=== PATIENT | female | born 2000 | race Caucasian/White ===

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

== ENCOUNTER → 2019-01-14 12:19 | Outpatient (CLI) | payer MEDICAID, SELFPAY ==
[2019-01-14 09:29] VITALS: BMI 24.9
[2019-01-14 14:31] LABS: Amphetamine Urine VISTA NEGATIVE (<1000 ng/mL); Barbiturate Urine VISTA NEGATIVE (< 200 ng/mL); Benzodiazepine Urine VISTA NEGATIVE (< 200 ng/mL); Cocaine Urine VISTA NEGATIVE (< 300 ng/mL); Ecstacy Urine VISTA NEGATIVE (< 500 ng/mL); Methadone Urine VISTA NEGATIVE (< 300 ng/mL); PCP Urine VISTA NEGATIVE (< 25 ng/mL); THC Urine VISTA POSITIVE (< 50 ng/mL); Vista UDS pH Range 7
== END ==
PROVIDERS: Referring Provider Nurse Practitioner Women's Health; Visit Provider Nurse Practitioner Women's Health
DX: Z87.898 Personal history of other specified conditions (principal)
CPT/HCPCS: 80307

== ENCOUNTER → 2019-02-04 15:05 | Outpatient (CLI) | payer MEDICAID, SELFPAY ==
[2019-02-04 14:21] VITALS: BMI 24.9
[2019-02-04 15:34] LABS: Hematocrit 33.6 % (37-47); Hemoglobin 11.2 g/dL (12.0-15.0); Mean Corp Hgb Conc 33.3 g/dL (32-36); Mean Corpuscular Hgb 29.8 pg (27.0-32.0); Mean Corpuscular Volume 89.4 fL (81-99); Mean Platelet Vol. 9.4 fl (6.2-12.0); POSITIVE COUNT YES; POSITIVE MORPHOLOGY YES; Platelet Count 211 K/mm3 (150-450); RBC Distribution Width CV 12.5 % (11.6-14.6); RBC Distribution Width SD 40.9 fl (35.1-43.9); Red Blood Count 3.76 M/mm3 (4.2-5.4); White Blood Count 12.3 K/mm3 (4.4-11.0)
[2019-02-04 15:37] LABS: Differential Indicated MANUAL DIFF
[2019-02-04 16:13] LABS: Lymphocyte 19 % (19-41); Metamyelocyte 1 % (0-1); Monocyte 5 % (0-10); Neutrophil-Band 1 % (0-5); Neutrophil-Segmented 74 % (47-70); Total Cells Counted 100 (MANUAL DIFF)
[2019-02-04 16:14] LABS: Glucose Challenge Gest 1H 50g 153 mg/dL (70-140); Platelet Estimate ADEQUATE (ADEQ); Red Cell Morphology NORM C+C NORMAL (NORM C&C)
[2019-02-04 16:15] LABS: Absolute Lymphocyte Count 2.34 X10^3/uL (0.83-4.51); Absolute Neutrophil Count 9.2 X10^3/uL (2.0-7.7)
[2019-02-05 09:09] LABS: Hepatitis B Surface Antigen Non-Reactive (Nonreactive)
[2019-02-05 10:06] LABS: Pathologist Review Reviewed
== END ==
PROVIDERS: Visit Provider Obstetrics & Gynecology
DX: Z34.92 Encounter for supervision of normal pregnancy, unspecified, second trimester (principal); Z3A.27 27 weeks gestation of pregnancy
CPT/HCPCS: 36415; 82950; 85025; 87340

== ENCOUNTER → 2019-02-06 09:38 | Outpatient (CLI) | payer MEDICAID, SELFPAY ==
[2019-02-04 14:21] VITALS: BMI 24.9
== END ==
PROVIDERS: Referring Provider Obstetrics & Gynecology; Visit Provider Obstetrics & Gynecology
DX: Z34.90 Encounter for supervision of normal pregnancy, unspecified, unspecified trimester (principal)
CPT/HCPCS: 86850; 86900; 86901

== ENCOUNTER → 2019-02-24 10:03 | Outpatient (CLI) | payer MEDICAID, SELFPAY ==
[2019-02-04 14:21] VITALS: BMI 24.9
[2019-02-18 09:20] VITALS: BMI 24.9
[2019-02-24 10:46] LABS: Glucose GTT-Gestation. Fasting 98 mg/dL (<105)
[2019-02-24 11:46] LABS: Glucose GTT-Gestational 1 Hr 196 mg/dL (<190)
[2019-02-24 13:17] LABS: Glucose GTT-Gestational 2 Hr 141 mg/dL (<165)
[2019-02-24 14:20] LABS: Glucose GTT-Gestational 3 Hr 61 L (<145)
== END ==
PROVIDERS: Referring Provider Nurse Practitioner Women's Health; Visit Provider Nurse Practitioner Women's Health
DX: O99.810 Abnormal glucose complicating pregnancy (principal)
CPT/HCPCS: 36415; 82951; 82952

== ENCOUNTER → 2019-03-07 13:21 | Outpatient (CLI) | payer MEDICAID, SELFPAY ==
[2019-03-07 11:03] VITALS: BMI 24.9
[2019-03-07 14:14] LABS: Amphetamine Urine VISTA NEGATIVE (<1000 ng/mL); Barbiturate Urine VISTA NEGATIVE (< 200 ng/mL); Benzodiazepine Urine VISTA NEGATIVE (< 200 ng/mL); Cocaine Urine VISTA NEGATIVE (< 300 ng/mL); Ecstacy Urine VISTA NEGATIVE (< 500 ng/mL); Methadone Urine VISTA NEGATIVE (< 300 ng/mL); PCP Urine VISTA NEGATIVE (< 25 ng/mL); THC Urine VISTA POSITIVE (< 50 ng/mL); Vista UDS pH Range 6
== END ==
PROVIDERS: Referring Provider Obstetrics & Gynecology; Visit Provider Obstetrics & Gynecology
DX: Z87.898 Personal history of other specified conditions (principal)
CPT/HCPCS: 80307

== ENCOUNTER → 2019-04-04 | Outpatient (CLI) | payer MEDICAID, SELFPAY ==
[2019-04-04 13:15] VITALS: BMI 24.9
== END | disposition home or self-care (01) ==
LOC: LABSPEC 16:59
PROVIDERS: Referring Provider Obstetrics & Gynecology; Visit Provider Obstetrics & Gynecology
DX: Z34.90 Encounter for supervision of normal pregnancy, unspecified, unspecified trimester (principal)
CPT/HCPCS: 87081

== ENCOUNTER → 2019-04-08 14:53 | Outpatient (CLI) | payer MEDICAID, SELFPAY ==
[2019-04-04 13:15] VITALS: BMI 24.9
--- NOTE | 2019-04-08 14:54 | US_ITS ---
STUDY: OBSTETRICAL ULTRASOUND - BIOPHYSICAL PROFILE REASON FOR EXAM: Female, 18 years old WELL BEING LMP: 07/25/2018 PRIOR ULTRASOUND: None. TECHNIQUE: Transabdominal TECHNICAL QUALITY: Adequate. FINDINGS: There is a single intrauterine fetus. The fetus is in a cephalic presentation. There is demonstrated cardiac activity with a heart rate of 144 bpm. There is a normal amniotic fluid volume. The largest amniotic fluid pocket measures 6.6 cm. The amniotic fluid index (ANURAG) is 16.6 cm. The placenta is fundal in location. There are Grade 3 placental changes. Age by LMP: 36 weeks, 5 days. PEPITO by LMP: 05/01/2019. BIOPHYSICAL PROFILE: Breathing Movements (FBM): 2 Gross Body Movements (GBM): 2 Tone (FT): 2 Amniotic Fluid Volume (AFV): 2 TOTAL SCORE: 8 / 8 US/Biophysical Prof W/O Non Stres IMPRESSION: Normal biophysical profile of 09/26. Electronically Signed: Pedro Armijo MD at 8:06 EST Tel , Service support ,
--- NOTE | 2019-04-08 15:21 | US_ITS ---
STUDY: SECOND AND THIRD TRIMESTER OBSTETRICAL ULTRASOUND - LIMITED REASON FOR EXAM: Female, 18 years old GROWTH LMP: 07/25/2018 PRIOR ULTRASOUND: None. TECHNIQUE: Transabdominal TECHNICAL QUALITY: Adequate. FINDINGS: There is a single intrauterine fetus. The fetus is in a cephalic presentation. There is demonstrated cardiac activity with a heart rate of 158 bpm. There is a normal amniotic fluid volume. The largest amniotic fluid pocket measures 7.0 cm. The amniotic fluid index (ANURAG) is 16.3 cm. The placenta is fundal in location. There are Grade 3 placental changes. The cervix measures cm in length. BIOMETRY: BPD: 8.7 cm: 35 weeks, 1 days HC: 31.4 cm: 35 weeks, 2 days AC: 36.4 cm: 40 weeks, 3 days FL: 6.6 cm: 34 weeks, 0 days Age by LMP: 36 weeks, 5 days. PEPITO by LMP: 05/01/2019. age by current US: 36 weeks, 2 days. PEPITO by current US: 05/04/2019. Estimated weight: 3298 grams, +/- 482 grams, 81 percentile. Gender: US/OB Limited With Biometrics IMPRESSION: Living intrauterine of 36 weeks 2 days as described above. Electronically Signed: Pedro Armijo MD at 8:09 EST Tel , Service support ,
== END ==
PROVIDERS: Referring Provider Obstetrics & Gynecology; Visit Provider Obstetrics & Gynecology
DX: O99.810 Abnormal glucose complicating pregnancy (principal); Z3A.36 36 weeks gestation of pregnancy
CPT/HCPCS: 76816; 76819

== ENCOUNTER → 2019-04-10 | Outpatient (CLI) | payer MEDICAID, SELFPAY ==
[2019-04-10 11:06] VITALS: BMI 24.9
[2019-04-10 13:38] LABS: Amphetamine Urine VISTA NEGATIVE (<1000 ng/mL); Barbiturate Urine VISTA NEGATIVE (< 200 ng/mL); Benzodiazepine Urine VISTA NEGATIVE (< 200 ng/mL); Cocaine Urine VISTA NEGATIVE (< 300 ng/mL); Ecstacy Urine VISTA NEGATIVE (< 500 ng/mL); Methadone Urine VISTA NEGATIVE (< 300 ng/mL); PCP Urine VISTA NEGATIVE (< 25 ng/mL); THC Urine VISTA POSITIVE (< 50 ng/mL); Vista UDS pH Range 6
== END | disposition home or self-care (01) ==
LOC: LABSPEC 13:11
PROVIDERS: Referring Provider Obstetrics & Gynecology; Visit Provider Obstetrics & Gynecology
DX: Z87.898 Personal history of other specified conditions
CPT/HCPCS: 80307

== ENCOUNTER 2019-04-18 12:00 | Inpatient (IN) | payer MEDICAID, SELFPAY ==
[2019-04-17 10:53] VITALS: BMI 24.9
[2019-04-18] VITALS (30 sets, daily range): BP systolic 111–177; BP diastolic 61–97; PULSE 88–160; RESP 16–17; TEMP 36.9–37; O2SAT 99–100; BMI 35.9
[2019-04-18 11:59] LABS: ROM Internal Control Test YES-OK TO RESULT pt. (Internal QC); ROM Patient Test POSITIVE (Negative)
[2019-04-18] MEDS: Lactated Ringers 1,000 ML 50 ML IV (12:35)
[2019-04-18 12:51] LABS: Absolute Lymphocyte Count 1.86 X10^3/uL (0.83-4.51); Absolute Neutrophil Count 13.2 X10^3/uL (2.0-7.7); Basophil# 0.08 X10^3/uL; Basophil% 0.5 % (0-1); Eosinophil# 0.05 X10^3/uL; Eosinophils% 0.3 % (0-5); Hematocrit 35.7 % (37-47); Hemoglobin 11.8 g/dL (12.0-15.0); Lymphocyte # 1.86 X10^3/ul (4.0); Lymphocyte % 11.1 % (19-41); Mean Corp Hgb Conc 33.1 g/dL (32-36); Mean Corpuscular Hgb 27.3 pg (27.0-32.0); Mean Corpuscular Volume 82.6 fL (81-99); Mean Platelet Vol. 9.9 fl (6.2-12.0); Monocyte# 0.98 X10^3/uL; Monocyte% 5.9 % (0-10); NRBC Flagged by Analyzer 0 % (0-5); Platelet Count 302 K/mm3 (150-450); RBC Distribution Width CV 13.9 % (11.6-14.6); RBC Distribution Width SD 40.7 fl (35.1-43.9); Red Blood Count 4.32 M/mm3 (4.2-5.4); White Blood Count 16.7 K/mm3 (4.4-11.0)
[2019-04-18] MEDS: Lactated Ringers 500 ML 999 ML IV (13:07)
[2019-04-18 13:16] LABS: Amphetamine Urine VISTA NEGATIVE (<1000 ng/mL); Barbiturate Urine VISTA NEGATIVE (< 200 ng/mL); Benzodiazepine Urine VISTA NEGATIVE (< 200 ng/mL); Cocaine Urine VISTA NEGATIVE (< 300 ng/mL); Ecstacy Urine VISTA NEGATIVE (< 500 ng/mL); Methadone Urine VISTA NEGATIVE (< 300 ng/mL); PCP Urine VISTA NEGATIVE (< 25 ng/mL); THC Urine VISTA POSITIVE (< 50 ng/mL); Vista UDS pH Range 7
[2019-04-18] MEDS: fentaNYL-bupivacaine (epidural) 100 ML BAG EPIDURAL (13:43)
--- NOTE | 2019-04-18 13:47 | HP.PCM_ITS ---
- Problem List (1) SROM (spontaneous rupture of membranes) Status: Acute (2) Contraception management Status: Acute Qualifiers: Comment: NEXPLANON POST DELIVERY (3) Abnormal glucose affecting Status: Acute Comment: Normal 3hr GTT (4) Incarceration Status: Acute Comment: 01/14 [place] violation, positive for marijuana use. 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 Anatomy and growth US normal. (11) Supervision of normal Status: Acute Qualifiers: Comment: PRR PEPITO 05/01/19 girl Sherice boyfriend Mukesh ([place]) History Date of Admission: 04/18/19 History of this : This is a 18 year-old, at 38 weeks gestational age presents IAL with SROM clear fluid Surgical History: Surgical History (Last Reviewed 04/10/19 @ 11:06 by Genoveva Aldridge) History of skin graft Z94.5 arm Allergies No Known Allergies Allergy (Verified 04/18/19 12:50) Home Medications: Home Medications vitamin#30 30 mg iron-10 mg iron-folic acid 1 mg-omg3 capsule 1 cap PO DAILY cap 09/25/18 Smoking Status: Light Smoker (<10/day) Substance Use Type: Marijuana Number of Fetus(es): 1 NST - FHR Rate Baby A Baseline: 130 Variability:: Moderate Accelerations:: 15 x 15 Decelerations:: None NST Reactive:: Yes FHR Category:: Category I Uterine Activity:: q 3-4 History Past Pregnancies: Past Pregnancies Delivery Date Name GA/ Weeks Outcome Route Wt Infant Sex Labor Length Anesthesia Delivery Location Provider FOB Labs: Mom's Problem List Problem Status Onset Code SROM (spontaneous rupture of membranes) Acute Mom's Labs & Results 04/18/19 04/18/19 04/18/19 11:45 12:00 12:00 WBC 16.7 H RBC 4.32 Hgb 11.8 L Hct 35.7 L MCV 82.6 MCH 27.3 MCHC 33.1 RDW Std Deviation 40.7 RDW Coeff of Jay 13.9 Plt Count 302 MPV 9.9 Immature Gran % (Auto) 3.200 H Neut % (Auto) 79.0 H Lymph % (Auto) 11.1 L Luna % (Auto) 5.9 Eos % (Auto) 0.3 Baso % (Auto) 0.5 Absolute Neuts (auto) 13.2 H Absolute Lymphs (auto) 1.86 Nucleated RBC % 0 Vag Amniotic Fld Detect POSITIVE H Urine Opiates Screen Urine Methadone Screen Ur Barbiturates Screen Ur Phencyclidine Scrn Ur Amphetamines Screen U Methamphetamin-MDMA U Benzodiazepines Scrn Urine Cocaine Screen U Cannabinoids Screen Ur Drug Screen Comment Blood Type Pending Antibody Screen Pending 04/18/19 12:00 WBC RBC Hgb Hct MCV MCH MCHC RDW Std Deviation RDW Coeff of Jay Plt Count MPV Immature Gran % (Auto) Neut % (Auto) Lymph % (Auto) Luna % (Auto) Eos % (Auto) Baso % (Auto) Absolute Neuts (auto) Absolute Lymphs (auto) Nucleated RBC % Vag Amniotic Fld Detect Urine Opiates Screen NEGATIVE Urine Methadone Screen NEGATIVE Ur Barbiturates Screen NEGATIVE Ur Phencyclidine Scrn NEGATIVE Ur Amphetamines Screen NEGATIVE U Methamphetamin-MDMA NEGATIVE U Benzodiazepines Scrn NEGATIVE Urine Cocaine Screen NEGATIVE U Cannabinoids Screen POSITIVE H Ur Drug Screen Comment Blood Type Antibody Screen Course Did the patient receive Yes care? Labs Blood Type: O RH: NEGATIVE RPR/VDRL/Syphilis Nonreactive Rubella status Immune HbSAg Negative Date Done: 02/04/19 Chlamydia Negative Gonorrhea Negative HIV/AIDS Non-Reactive Group B Strep: Negative Current Obstetrical History Gestational Diabetes No Incompetent Cervix No Infertility No IUGR No Macrosomia No Hypertension/Pre-eclampsia No Placenta Previa/Abruption No PTL/PROM No Uterine anomaly No Oligohydramnios No Polyhydramnios No Multiple gestation No Past Medical History Asthma No Diabetes No Hypertension No Heart disease No Mitral valve prolapse No Neurologic/Seizure disorder/ No Migraines Kidney disease No Liver disease No Varicosities No Clotting disorders/Hx of DVT No Thyroid Dysfunction No Other medical diseases No Psychiatric disorders No Major trauma Yes: skin graft on right arm at 2yo from washing machine accident Abnormal PAP smear No Sleep apnea No Mammogram in the last 2 years No Social History Marital Status: SINGLE Alleged father Mukesh Hx Smoking Yes Smoking Status Light Smoker (<10/day) Substance Use Type Marijuana How long have you used marijuana-2 years substances (years)? What date/time did you last not sure-around 3-4months use any of the above? Have you had any previous no inpatient or outpatient treatment Expected Infant Delivery Method: Spontaneous Vaginal Review of Systems Constitutional: Denies: Fever, Malaise Eyes: Denies: Blurred vision, Vision Change HEENT: Denies: Head Aches, Visual Changes Cardiovascular: Denies: Chest Pain, Palpitations Respiratory: Denies: Cough, Shortness of Breath, Wheezing Gastrointestinal: Denies: Abdominal Pain, Diarrhea, Nausea, Vomiting Genitourinary: Denies: Dysuria, Hematuria Musculoskeletal: Denies: Joint Pain, Muscle pain Skin: Denies: Lesions, Rash Neurological: Denies: Blurred vision, Focal weakness, Headaches Psychiatric: Denies: Anxiety, Depression Endocrine: Denies: Heat/ Cold Intolerance Hematologic/ Lymphatic: Denies: Easy Bruising, Easy Bleeding Physical Exam General: Alert, Cooperative, No apparent distress HEENT: Atraumatic, Normocephalic. Negative for: Thyromegaly, Lymphadenopathy Cardiovascular: Regular rate Lungs: Normal air movement Abdomen: Soft, Non Tender, Gravid Neurological: Deep Tendon Reflexes 2+/4 and Symmetrical, Neuro grossly intact. Negative for: Clonus CHIEF STRATEGY OFFICER: Normal external genitalia. 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 Pain management: plans epidural. GBS negative. Management of any complications: none I have reviewed the [facility] and made any clinically relevant updates..
[2019-04-18] MEDS: Oxytocin 30 units/NS 500 ml 30 UNITS/500 ML IV.SOLN 334 UNITS IV (16:08)
--- NOTE | 2019-04-18 16:14 | PCM.OPRPT ---
Problem List (1) SROM (spontaneous rupture of membranes) Status: Acute (2) Contraception management Status: Acute Qualifiers: Comment: NEXPLANON POST DELIVERY (3) Abnormal glucose affecting Status: Acute Comment: Normal 3hr GTT (4) Incarceration Status: Acute Comment: 01/14 [place] violation, positive for marijuana use. 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 Anatomy and growth US normal. (11) Supervision of normal Status: Acute Qualifiers: Comment: PRR PEPITO 05/01/19 girl Sherice boyfrtheresa Mayorga ([place]) Vaginal Delivery Maternal Presentation: Active Labor ial Amniotic Membrane Rupture Type: Spontaneous at home Amniotic Fluid Description: Clear Final PEPITO: 05/01/19 Gestational age: 38 Weeks and 1 Days Date of Procedure: 04/18/19 Pre-Operative Diagnosis: ial Post-Operative Diagnosis: same Surgery/ Procedure Performed: Spontaneous Vaginal Delivery Type of Anesthesia: Epidural Description of Procedure: Patient began pushing and delivered the head in the LADONNA presentation. The head was delivered atraumatically. The anterior and posterior shoulders delivered without complication followed by the rest of the infant and the infant was placed on the maternal abdomen. Delayed cord clamping was employed for approximately 60 seconds. Cord was clamped and cut and gentle traction was applied to the cord and the placenta delivered spontaneously immediately following it was noted to be intact with three-vessel cord. The perineum and vagina were inspected and noted to have no laceration. EBL was 300 cc. Patient and infant tolerated delivery well. Presentation: LADONNA Placental Delivery Description: Spontaneous Placenta Disposition: [facility] Codes - Urinary/Genital Urinary/Genital CPT Codes: 04905 Vaginal Delivery+ Care([facility])
[2019-04-18] MEDS: Acetaminophen 500 MG Tablet 1000 MG PO (23:21)
--- NOTE | 2019-04-19 03:09 | DCINST_ITS ---
Discharge Diet: No Restrictions Discharge Activity: Return to Normal Activity, May not drive while taking narcotic pain medications., May Shower May resume sexual activity in: 4-6 weeks Call your doctor if your incision/area has: Continuous Slow Oozing, Sudden Increased Bleeding, Increased Pain/ Swelling, Increased Redness, Foul Smelling Discharge Additional Instructions: If you experience any of the following, contact your healthcare provider. * Bleeding that soaks a pad every hour for 2 hours * Fever 100.4 or higher * Unrelieved incision or abdominal pain * Swelling, redness, discharge or bleeding from your incision or episiotomy site * Your incision begins to separate * Problems urinating (including inability to urinate or burning while urinating). * Visual changes * Severe headache * Flu-like symptoms * Pain or redness in one of both of your breasts * Pain, warmth, tenderness or swelling in your legs, especially the calf area * Frequent nausea and vomiting * Symptoms of depression or anxiety If you experience any of the following, call 911 or go to the nearest Emergency Room. * Chest pain * Problems breathing * Seizure activity * Partial or complete paralysis of a body part, slurred speech, weakness or drooping of the face, or a sudden inability to walk or hold your balance Allergies/Adverse Reactions: Allergies No Known Allergies Allergy (Verified 04/18/19 12:50) Medications to take at Discharge vitamin#30 30 mg iron-10 mg iron-folic acid 1 mg-omg3 capsule 1 cap PO DAILY cap 09/25/18 Please Follow Up With: Cass Gillespie MD - [phone] When: Call to make an appointment with your doctor in 6 weeks. If you had elevated Blood pressure or 4th degree laceration you will need to be seen in 2 weeks. Primary Care Physician: Care Physician,No Primary [Primary Care Provider] - Test Results: Test results from this visit will be discussed in further detail at your follow- up appointment, if applicable.
--- NOTE | 2019-04-19 03:09 | PCM.DCVAG ---
Discharge Diet: No Restrictions Discharge Activity: Return to Normal Activity, May not drive while taking narcotic pain medications., May Shower May resume sexual activity in: 4-6 weeks Call your doctor if your incision/area has: Continuous Slow Oozing, Sudden Increased Bleeding, Increased Pain/ Swelling, Increased Redness, Foul Smelling Discharge Additional Instructions: If you experience any of the following, contact your healthcare provider. Bleeding that soaks a pad every hour for 2 hours Fever 100.4 or higher Unrelieved incision or abdominal pain Swelling, redness, discharge or bleeding from your incision or episiotomy site Your incision begins to separate Problems urinating (including inability to urinate or burning while urinating). Visual changes Severe headache Flu-like symptoms Pain or redness in one of both of your breasts Pain, warmth, tenderness or swelling in your legs, especially the calf area Frequent nausea and vomiting Symptoms of depression or anxiety If you experience any of the following, call 911 or go to the nearest Emergency Room. Chest pain Problems breathing Seizure activity Partial or complete paralysis of a body part, slurred speech, weakness or drooping of the face, or a sudden inability to walk or hold your balance Allergies/Adverse Reactions: Allergies No Known Allergies Allergy (Verified 04/18/19 12:50) Medications to take at Discharge vitamin#30 30 mg iron-10 mg iron-folic acid 1 mg-omg3 capsule 1 cap PO DAILY cap 09/25/18 Please Follow Up With: Cass Gillespie MD - [phone] When: Call to make an appointment with your doctor in 6 weeks. If you had elevated Blood pressure or 4th degree laceration you will need to be seen in 2 weeks. Primary Care Physician: Care Physician,No Primary [Primary Care Provider] - Test Results: Test results from this visit will be discussed in further detail at your follow-up appointment, if applicable.
[2019-04-19 04:15] VITALS: BP 135/69; PULSE 92; RESP 16; TEMP 37.1
[2019-04-19] MEDS: Acetaminophen 500 MG Tablet 1000 MG PO (08:56)
[2019-04-19 09:00] VITALS: BP 117/62; PULSE 74; RESP 16; TEMP 36.9
--- NOTE | 2019-04-19 10:35 | PN.OBGYN_ITS ---
Patient Problems: Active and Suspected Problems (Last Reviewed 04/17/19 @ 10:53 by Genoveva Aldridge) SROM (spontaneous rupture of membranes) (Acute) Subjective: doing well no complaints pain controlled no CP SOB N V ambulating well tolerating po lochia moderate, going well - Physical Exam Vitals/I&O's: Vital Signs Temp Pulse Resp BP 98.4 F 74 16 117/62 04/19/19 09:00 04/19/19 09:00 04/19/19 09:00 04/19/19 09:00 Oxygen Delivery Method Room Air Weight: 229 lb 4.492 oz Body Mass Index (BMI) 35.9 Intake and Output for Last 24 Hours 04/17/19 04/18/19 04/19/19 23:59 23:59 23:59 Intake Total 1526.67 / 1526.67 Output Total 500 / 500 Balance 1026.67 / 1026.67 General: Alert, Oriented x3 Laboratory Results 04/18/19 11:45: Vag Amniotic Fld Detect POSITIVE H 04/18/19 12:00: WBC 16.7 H, RBC 4.32, Hgb 11.8 L, Hct 35.7 L, MCV 82.6, MCH 27.3, MCHC 33.1, RDW Std Deviation 40.7, RDW Coeff of Jay 13.9, Plt Count 302, MPV 9.9, Immature Gran % (Auto) 3.200 H, Neut % (Auto) 79.0 H, Lymph % (Auto) 11.1 L, Prentiss % (Auto) 5.9, Eos % (Auto) 0.3, Baso % (Auto) 0.5, Absolute Neuts (auto) 13.2 H, Absolute Lymphs (auto) 1.86, Nucleated RBC % 0 04/18/19 12:00: Blood Type O NEGATIVE, Antibody Screen NEGATIVE 04/18/19 12:00: Urine Opiates Screen NEGATIVE, Urine Methadone Screen NEGATIVE, Ur Barbiturates Screen NEGATIVE, Ur Phencyclidine Scrn NEGATIVE, Ur Amphetamines Screen NEGATIVE, U Methamphetamin-MDMA NEGATIVE, U Benzodiazepines Scrn NEGATIVE, Urine Cocaine Screen NEGATIVE, U Cannabinoids Screen POSITIVE H, Ur Drug Screen Comment Current Medications Acetaminophen (Tylenol) 325 - 650 mg PO Q4H PRN PRN PRN Reason: Pain Score 1-3/10 Acetaminophen (Tylenol) 1,000 mg PO Q8H PRN PRN PRN Reason: Pain Score 1-3/10 Last Admin: 04/19/19 08:56 Dose: 1,000 mg Documented by: Al Hydroxide/Mg Hydroxide (Mylanta Ii) 15 - 30 ml PO Q4H PRN PRN PRN Reason: INDIGESTION Bisacodyl (Dulcolax) 10 mg RECTAL UD PRN PRN Reason: If no BM Citric Acid/Sodium Citrate (Bicitra) 30 ml PO X1 PRN PRN Reason: Section Dibucaine (Dibucaine) 1 applic TOPICAL TID PRN PRN; Protocol PRN Reason: Discomfort Ephedrine Sulfate () 10 mg IV Q10M PRN PRN Reason: hypotension Ephedrine Sulfate () 10 mg IM Q30M PRN PRN Reason: hypotension Fentanyl Citrate (Sublimaze (100mcg Ampule)) 25 - 50 mcg IV Q2H PRN PRN PRN Reason: Pain Score 4-10/10 Fentanyl/Bupivacaine/Sodium Chlor () 0 ml EPIDURAL UD BERTHA; Protocol Last Admin: 04/18/19 13:43 Dose: 100 ml Documented by: Hydrocortisone (Hytone) 1 applic TOPICAL TID PRN PRN; Protocol PRN Reason: Discomfort Lactated Ringer's () 500 mls @ 999 mls/hr IV .Q31M PRN PRN Reason: Epidural Last Infusion: 04/18/19 13:38 Dose: Infused Documented by: Lactated Ringer's () 500 mls @ 999 mls/hr IV .Q31M PRN PRN Reason: Corrective Measures Lactated Ringer's () 1,000 mls @ 50 mls/hr IV .Q20H BERTHA Last Infusion: 04/18/19 16:08 Dose: Infused Documented by: Naloxone HCl 4 mg/ Dextrose 504 mls @ 0 mls/hr IV .Q0M PRN; Protocol PRN Reason: To maintain Resp. rate >10 Methylergonovine Maleate (Methergine) 0.2 mg IM X1 PRN PRN Reason: Excess bleeding/uterine atony Nalbuphine HCl (Nubain) 5 mg IV Q3H PRN PRN PRN Reason: ITCHING Naloxone HCl (Narcan) 0.02 mg IV Q1M PRN PRN Reason: RR< 10 AND PT UNRESPONSIVE Ondansetron HCl (Zofran) 4 mg IV Q4H PRN PRN PRN Reason: NAUSEA Ondansetron HCl (Zofran) 4 mg IV Q4H PRN PRN PRN Reason: Nausea Prochlorperazine Edisylate (Compazine Iv) 10 mg IV Q6H PRN PRN PRN Reason: NAUSEA Senna/Docusate Sodium (Senokot-S, Sommer-Colace) 1 - 2 tablet PO DAILY PRN PRN PRN Reason: Constipation Simethicone (Mylicon) 80 mg PO PCHS PRN PRN Reason: Indigestion/Stomach pain Sodium Chloride () 10 - 40 ml IV X1 PRN PRN Reason: SALINE FLUSH Sodium Chloride () 5 - 15 ml IV UD PRN PRN Reason: SALINE FLUSH Medical Necessity - Tobacco Use Smoking Status: Light Smoker (<10/day) Assessment/Plan All Active Problems (Last Reviewed 04/17/19 @ 10:53 by Genoveva Aldridge) SROM (spontaneous rupture of membranes) (Acute) Contraception management (Acute) Abnormal glucose affecting (Acute) Incarceration (Acute) 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 routine post delivery care 2. breast feeding- support given 3. rh negative 4. rubella immune
[2019-04-19 11:44] VITALS: BP 128/70; PULSE 72; RESP 16; TEMP 36.3
[2019-04-19] MEDS: Senna/Docusate Sodium 1 Tablet PO (15:56)
[2019-04-19 16:00] VITALS: BP 135/82; RESP 16; TEMP 36.7
--- NOTE | 2019-04-19 16:00 | CASEMGMT ---
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 SUKHJINDER NEGRON LUIS FELIPE REPORTS WORKS FOR [employer]. Infant Supplies: IVANA REPORTS HAS ALL NEEDS MET FOR BABY INCLUDING DIAPERS, WIPES, CRIB, CAR SEAT, CLOTHES ETC. Childcare/Caregiver(s): IVANA REPORTS WILL BE MAIN CAREGIVER FOR BABY GIRL, NIKITA. IVANA REPORTS HAS GOOD SUPPORT FROM PARENTS, FOB, AND FOB?S PARENTS. Transportation: MOB VOICES NO ISSUES WITH TRANSPORATION Programs/Agencies Involved: [place], [place]- IVANA REPORTS WILL BE CALLING TO MAKE APPOINTMENT Children Services/Legal Issues: IVANA TSE IS CURRENTLY ON PROBATION D/T MARIJUANA USE. Behavioral Health Issues: Mental Health History: MOB REPORTS HISTORY OF BIPOLAR DISORDER. MOB REPORTS DOES NOT TAKE MEDICATION AND IS NOT CURRNETLY IN COUNSELING. MOB DENIES NEED FOR COUNSELING SERVICES AT THIS TIME. Substance Use History: MOB REPORTS USE OF MARIJUANA AND TOBACCO. MOB ADMITS TO DAILY USE OF MARIJUANA. FOB ADMITS TO OCCASIONAL USE OF ALCOHOL. Drug Screens: MOB WITH POSITIVE DRUG SCREEN FOR THC. BABY?S URINE DRUG SCREEN POSITIVE. MECONIUM WAS COLLECTED FOR TESTING. Support Systems: MOB REPORTS GOOD SUPPORT FROM FOB AND PARENTS. Depression/Shaken Baby/Safe Sleeping ASSESSMENT: MET WITH MOB AND FOB IN ROOM. INTRODUCED ROLE AND REASON FOR REFERRAL. MOB WISHED FOR FOB TO BE PRESENT DURING ASSESSMENT. IVANA REPORTS LIVES HOME WITH HER PARENTS AND FOB. MOB AND FOB REPORT HAVE BEEN TOGETHER FOR 2 YEARS. FOB HAS A 1.5 YEAR OLD DAUGHTER. MOB AND FOB REPORT HAVE ALL NEEDS MET FOR BABY. MOB IS BREAST FEEDING AND REPORTS BABY GIRL IS DOING WELL WITH NURSING. DISCUSSED USE OF MARIJUANA AND ENCOURAGED MOB NOT TO USE WHILE BREAST FEEDING. MOB AND FOB AWARE OF CHILDREN SERVICES REFERRAL DUE TO POSITIVE DRUG SCREENS. BOTH VERBALIZED UNDERSTANDING. MOB REPORTS HISTORY OF BIPOLAR DISORDER AND STATES IS NOT PRESCRIBED MEDICATION. DISCUSSED AREA MENTAL HEALTH AGENCIES. MOB DENIES NEED FOR REFERRAL AT THIS TIME. EDUCATION PROVIDED ON HELP ME GROW. MOB AND FOB OPEN TO REFERRAL. REFERRAL SUBMITTED VIA ONLINE SECURE WEBSITE. Safe Plan of Care for infant related to substance use: MOB OPENLY ADMITS TO MARIJUANA USE. DISCUSSED USE AND INFORMED MOB AND FOB REPORT WILL BE MADE TO CHILDREN SERVICES. BOTH VERBALIZED UNDERSTANDING. PLAN: HOME WITH RESOURCES PROVIDED AND REFERRAL TO HELP ME GROW. REPORT TO BE MADE TO CHILDREN SERVICES REGARDING POSITIVE DRUG SCREEN FOR THC FOR MOB AND BABY GIRL, NIKITA. No other services requested or indicated. -Lupe Verma, IT INVESTMENT/PORTFOLIO MANAGER, EDUCATION AND TRAINING COORDINATOR
--- NOTE | 2019-04-19 17:20 | CASEMGMT ---
SOCIAL WORK REPORT MADE TO [facility] CHILDREN SERVICES ASSEMBLER AND TESTER ELECTRONICSCARD SERVICES SPECIALISTKISHAN REGARDING POSITIVE DRUG SCREENS FOR THC FOR MOB AND BABY GIRL, NIKITA. INFORMED MECONIUM HAS BEEN SENT. UPDATED ON THIS WORKER'S ASSESSMENT AND MOB'S REPORT TO DAILY USE OF MARIJUANA. PER KISHAN, REPORT TO BE SCREENED IN. CHILDREN SERVICES REQUESTING TO BE CALLED UPON DISCHARGE. NURSING STAFF UPDATED. IF DISCHARGED TOMORROW, 04/20/2019- ON-CALL CHILDREN SERVICES WORKERKISHAN TO BE REACHED AT [phone]. D. MS ZAKIYAW, SPORTS JOURNALIST.
[2019-04-19 20:20] VITALS: BP 121/68; PULSE 90; RESP 16; TEMP 36.7
[2019-04-20] MEDS: Acetaminophen 500 MG Tablet 1000 MG PO (00:47)
[2019-04-20 02:24] VITALS: BP 121/64; PULSE 90; RESP 14; TEMP 36.6
[2019-04-20 08:05] VITALS: BP 119/74; RESP 16; TEMP 36.4
[2019-04-20] MEDS: Etonogestrel 68 MG IMPLANT SQ (08:36)
--- NOTE | 2019-04-20 08:37 | PCM.OPRPT ---
Problem List (1) SROM (spontaneous rupture of membranes) Status: Acute (2) Contraception management Status: Acute Qualifiers: Comment: NEXPLANON POST DELIVERY (3) Abnormal glucose affecting Status: Acute Comment: Normal 3hr GTT (4) Incarceration Status: Acute Comment: 01/14 [place] violation, positive for marijuana use. 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 Anatomy and growth US normal. (11) Supervision of normal Status: Acute Qualifiers: Comment: PRR PEPITO 05/01/19 girl Sherice boyfrienjasmina Mayorga (mcintosh) Report of Operation Date of Procedure: 04/20/19 Pre-Operative Diagnosis: control Post-Operative Diagnosis: same Surgery/Procedure Performed:: nexplanon insertion Estimated Blood Loss (mL): minimal Description of Procedure: Left arm prepped with chlorhexidine and injected with lidocaine. Incision made and Nexplanon device inserted without complication confirmed to be in the subcutaneous space. Steri-Strip applied and bandage wrap applied. Precautions reviewed with patient. Patient tolerated the procedure well without complication Grafts/Implants Used: nexplanon - Complications none Multi Select Codes - Urinary/Genital Urinary/Genital CPT Codes: Other Procedure See Report - nexplanon insertion
--- NOTE | 2019-04-20 08:39 | PCM.PN.OB ---
Patient Problems: Active and Suspected Problems (Last Reviewed 04/17/19 @ 10:53 by Genoveva Aldridge) SROM (spontaneous rupture of membranes) (Acute) Subjective: doing well no complaints pain controlled no CP SOB N V ambulating well tolerating po lochia moderate, going well - Physical Exam Vitals/I&O's: Vital Signs Temp Pulse Resp BP 97.5 F L 90 16 119/74 04/20/19 08:05 04/20/19 02:24 04/20/19 08:05 04/20/19 08:05 Oxygen Delivery Method Room Air Weight: 229 lb 4.492 oz Body Mass Index (BMI) 35.9 Intake and Output for Last 24 Hours 04/18/19 04/19/19 04/20/19 23:59 23:59 23:59 Intake Total 1526.67 / 1526.67 Output Total 500 / 500 Balance 1026.67 / 1026.67 General: Alert, Oriented x3 Current Medications Acetaminophen (Tylenol) 325 - 650 mg PO Q4H PRN PRN PRN Reason: Pain Score 1-3/10 Acetaminophen (Tylenol) 1,000 mg PO Q8H PRN PRN PRN Reason: Pain Score 1-3/10 Last Admin: 04/20/19 00:47 Dose: 1,000 mg Documented by: Al Hydroxide/Mg Hydroxide (Mylanta Ii) 15 - 30 ml PO Q4H PRN PRN PRN Reason: INDIGESTION Bisacodyl (Dulcolax) 10 mg RECTAL UD PRN PRN Reason: If no BM Citric Acid/Sodium Citrate (Bicitra) 30 ml PO X1 PRN PRN Reason: Section Dibucaine (Dibucaine) 1 applic TOPICAL TID PRN PRN; Protocol PRN Reason: Discomfort Ephedrine Sulfate () 10 mg IV Q10M PRN PRN Reason: hypotension Ephedrine Sulfate () 10 mg IM Q30M PRN PRN Reason: hypotension Fentanyl Citrate (Sublimaze (100mcg Ampule)) 25 - 50 mcg IV Q2H PRN PRN PRN Reason: Pain Score 4-10/10 Fentanyl/Bupivacaine/Sodium Chlor () 0 ml EPIDURAL UD BERTHA; Protocol Last Admin: 04/19/19 19:40 Dose: Not Given Documented by: Hydrocortisone (Hytone) 1 applic TOPICAL TID PRN PRN; Protocol PRN Reason: Discomfort Lactated Ringer's () 500 mls @ 999 mls/hr IV .Q31M PRN PRN Reason: Epidural Last Infusion: 04/18/19 13:38 Dose: Infused Documented by: Lactated Ringer's () 500 mls @ 999 mls/hr IV .Q31M PRN PRN Reason: Corrective Measures Naloxone HCl 4 mg/ Dextrose 504 mls @ 0 mls/hr IV .Q0M PRN; Protocol PRN Reason: To maintain Resp. rate >10 Methylergonovine Maleate (Methergine) 0.2 mg IM X1 PRN PRN Reason: Excess bleeding/uterine atony Nalbuphine HCl (Nubain) 5 mg IV Q3H PRN PRN PRN Reason: ITCHING Naloxone HCl (Narcan) 0.02 mg IV Q1M PRN PRN Reason: RR< 10 AND PT UNRESPONSIVE Ondansetron HCl (Zofran) 4 mg IV Q4H PRN PRN PRN Reason: NAUSEA Ondansetron HCl (Zofran) 4 mg IV Q4H PRN PRN PRN Reason: Nausea Prochlorperazine Edisylate (Compazine Iv) 10 mg IV Q6H PRN PRN PRN Reason: NAUSEA Senna/Docusate Sodium (Senokot-S, Sommer-Colace) 1 - 2 tablet PO DAILY PRN PRN PRN Reason: Constipation Last Admin: 04/19/19 15:56 Dose: 1 tablet Documented by: Simethicone (Mylicon) 80 mg PO PCHS PRN PRN Reason: Indigestion/Stomach pain Sodium Chloride () 10 - 40 ml IV X1 PRN PRN Reason: SALINE FLUSH Sodium Chloride () 5 - 15 ml IV UD PRN PRN Reason: SALINE FLUSH Medical Necessity - Tobacco Use Smoking Status: Light Smoker (<10/day) Assessment/Plan All Active Problems (Last Reviewed 04/17/19 @ 10:53 by Genoveva Aldridge) SROM (spontaneous rupture of membranes) (Acute) Contraception management (Acute) Abnormal glucose affecting (Acute) Incarceration (Acute) 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 routine post delivery care 2. breast feeding- support given 3. rh negative 4. rubella immune nexplanon inserted
--- NOTE | 2019-04-20 10:52 | NURSING ---
Mireya from CPS in [facility] notified of patient's pending discharge. Patient is appropriate and involved in 's care. Patient has been instructed that it is not safe to breastfeed while smoking marijuana. Patient states she understands and it is her intention to quit smoking marijuana. I instructed her to formula feed the baby if she does not quit smoking marijuana. CPS aware of PHQ-9 score of 9. No other concerns from my standpoint.
== END 2019-04-20 10:55 | disposition home or self-care (01) | DRG 560 ==
LOC: OBT 12:10 → WP 12:10
PROVIDERS: Admitting Provider Obstetrics & Gynecology; Referring Provider Obstetrics & Gynecology; Visit Provider Obstetrics & Gynecology
DX: O36.63X0 Maternal care for excessive fetal growth, third trimester, not applicable or unspecified (principal); Z30.017 Encounter for initial prescription of implantable subdermal contraceptive; Z67.91 Unspecified blood type, Rh negative; O99.334 Smoking (tobacco) complicating childbirth; F17.200 Nicotine dependence, unspecified, uncomplicated; Z3A.38 38 weeks gestation of pregnancy; Z37.0 Single live birth
CPT/HCPCS: 59025; 59050; 80307; 84112; 85025; 86850; 86900; 86901; 99218; J7120; G0378

== ENCOUNTER 2021-05-11 16:48 | Inpatient (IN) | payer MEDICAID, SELFPAY ==
[2021-05-11 16:49] VITALS: BP 120/80; PULSE 133; RESP 18; TEMP 36.8; O2SAT 99; BMI 32.4
--- NOTE | 2021-05-11 17:03 | EDS_ITS ---
HPI History of Present Illness Chief Complaint: Substance Abuse Detail of Chief Complaint: Alcohol level dependency and methamphetamine use Informant: patient Onset/Context/Timing Onset: - (1 year use of alcohol former drug addict recently used methamph etamine) Context: Sudden Onset Timing: Continuous Quality: 1/5 of whiskey a day Location: Not applicable Current Severity: 11/28 Maximum Severity: 11/28 Worsened by: Psychosocial issues Relieved by: Nothing Associated Symptoms Associated Symptoms: Positive for tremor, palpatations and no; Negative for vomiting*, diarrhea*, fever*, rash*, seizure, change in mental status, sex for drugs*, suicidal ideation, homicidal ideation and *HIV Risk Factors:Consider testing if last test > 6 months Prehospital Treatment: Naloxone, Glucose, Oxygen, BVM and CPR Narrative Narrative: Patient is a 20-year-old female who started drinking heavily May 182020. She consumes 1/5 of whiskey a day. She also uses methamphetamine. She has been in drug rehab programs in the past. She not been in a program program year. She states she used the methamphetamine because of problems with her her and her ex. She lost her job 1 week ago. Her children were taken away from her because of her alcohol consumption. Patient's last drink was at 1300. She denies black or maroon stool. She has bleeding of her gums. She denies bruising easily. Prior similar symptoms: Yes Recent Illness/Hospitalization: No PFSH PFSH Home Medications aripiprazole 5 mg tablet 5 mg PO tab 01/31/21 [History Last Taken Unknown] cariprazine 4.5 mg capsule 4.5 mg PO cap 01/31/21 [History Last Taken Unknown] escitalopram oxalate 20 mg tablet 20 mg PO tab 01/31/21 [History Last Taken Unknown] escitalopram oxalate 5 mg tablet 5 mg PO tab 01/31/21 [History Last Taken Unknown] lamotrigine 150 mg tablet 150 mg PO tab 01/31/21 [History Last Taken Unknown] topiramate 100 mg tablet 100 mg PO tab 01/31/21 [History Last Taken Unknown] Allergy/AdvReac Type Severity Reaction Status Date / Time acetaminophen [From Tylenol] Allergy Itching Verified 05/11/21 16:52 Family History Father Heart disease Surgical History History of skin graft Social History (Updated 05/11/21 @ 17:[address] Johnny Anderson MD) household members: none Smoking Status: Current every day smoker tobacco type: cigarettes alcohol intake: current substance use type: does not use caffeine: Yes what type of physical activity do you participate in: none seatbelt use: always do you feel safe at home: Yes additional social history: Chelsea pelayo are unemployed ROS ROS ED Constitutional Constitutional ED: Denies chills, fever(s), subjective, sweats or weight loss Eyes Eyes: Denies blurry vision, change in vision or diplopia ENT ENT ED: Denies ear pain, rhinorrhea or sore throat Cardiovascular Cardiovascular: Reports palpitations and racing heartbeat; Denies chest pain Respiratory/Chest Respiratory/Chest: Denies cough, dyspnea or dyspnea on exertion Gastrointestinal Gastrointestinal: Reports nausea; Denies abdominal pain, diarrhea, melena or vomiting Genitourinary Genitourinary ED: Denies dysuria, LMP (females 10-50) or urinary frequency Musculoskeletal Musculoskeletal: Denies arthralgias, myalgias or neck pain Integumentary Denies Abrasions or rash Neurologic Neurologic: Denies paresthesias or weakness Psychiatric Psychiatric: Reports anxiety; Denies suicidal thoughts Hematologic/Lymphatic Hematologic/Lymphatic: Denies anemia, easy bleeding or easy bruising EXAM Physical Exam Const Vital Signs: 05/11/21 16:49 Temperature 98.3 F Temperature Source Temporal Pulse Rate 133 H Respiratory Rate 18 Blood Pressure 120/80 Blood Pressure Mean 93 Pulse Ox 99 Oxygen Delivery Method Room Air Positive well nourished and well developed General Appearance ED: well developed and other Tearful, inappropriate laughing, and embarrassment ; Negative for NAD or pallor HEENT Reports TM's clear and moist mucous membranes atraumatic; Negative for tenderness Tympanic Membrane ED: Yes TM's clear Eyes PERRL and EOMs intact bilaterally General Eye ED: Negative for pale conjunctiva or scleral icterus Neck no lymphadenopathy, supple and no JVD Lymph Lymphatic: no lymphadenopathy noted Resp normal respiratory effort and clear to auscultation bilaterally Cardio regular rhythm, S1 normal heart sound, S2 normal heart sound and no murmurs GI soft to palpation, non-tender, non-distended and no masses Back/Spine no CVA tenderness Cervical Spine: Negative for cervical spine tenderness Thoracic Spine / Upper Back: Negative for thoracic spinal tenderness Lumbar Spine / Lower Back: Negative for lumbar spinal tenderness Extremity General Extremety ED: Negative for tenderness Neuro oriented x3, CN's II-XII intact bilaterally and no sensory deficits noted Taiwo Coma Scale: document GCS findings Spontaneous Obeys Commands Oriented 15 Sensorium / Orientation: alert Motor Exam: strength 5/5 throughout Psych Negative for mental status grossly normal Attitude: No belligerent, No agitated, No aggressive and No hostile Mood & Affect: anxious and tearful Skin General Skin Exam: Negative for jaundice or pallor Lesions: no lesions Rashes: no rashes MDM MDM MDM Narrative Medical decision making narrative: Work-up was initiated for alcohol addiction. Since patient is tachycardic she received phenobarb. Case was discussed with hospitalist she will be admitted to the hospital labs will be checked by the hospitalist. Discharge Plan Triage Chief Complaint: Substance Abuse ED Provider: Johnny Anderson Dx/Rx/DC Orders Clinical Impression: Alcohol dependence, Sinus tachycardia, Bipolar affective disorder, Methamphetamine use Prescriptions: No Action lamotrigine 150 mg tablet 150 mg PO RF: 0 escitalopram oxalate 5 mg tablet 5 mg PO RF: 0 aripiprazole 5 mg tablet 5 mg PO RF: 0 escitalopram oxalate 20 mg tablet 20 mg PO RF: 0 topiramate 100 mg tablet 100 mg PO RF: 0 Vraylar 4.5 mg capsule 4.5 mg PO RF: 0 Primary Care Provider: Care Physician,No Primary Referrals: Care Physician,No Primary [Primary Care Provider] - Disposition Disposition: Acute Care Hospital [facility]
--- NOTE | 2021-05-11 17:12 | NURSING ---
HOSPITALIST FOR DR BLAKE
--- NOTE | 2021-05-11 17:21 | HP.PCM_ITS ---
Documented by User: APARNA Hunter 05/11/21 17:31 HPI - General General Date of Admission: 05/11/21 Date of Service: 05/11/21 Chief Complaint: Desire for detox from alcohol HPI Narrative MAGDY PENA, is a 20 F who presents with a desire to detox from alcohol. Patient states that she drinks approximately 1/5 of whiskey per day. Patient states she also drinks beer and other malt beverages occasionally. Patient states that she had been in an inpatient detox center in [facility] for methamphetamine abuse approximately 1 year ago and had been clean up until Sunday when she relapsed. Patient denies any other drug use. Patient does have a history of bipolar affective disorder however patient has no other medical history. [facility] Medical History (Updated 05/11/21 @ 17:31 by APARNA Hunter) Bipolar affective disorder Home Medications aripiprazole 5 mg tablet 5 mg PO DAILY tab 01/31/21 [History Last Taken 05/11/21] cariprazine 4.5 mg capsule 4.5 mg PO DAILY cap 01/31/21 [History Last Taken 05/11/21] escitalopram oxalate 5 mg tablet 25 mg PO DAILY tab 01/31/21 [History Last Taken 05/11/21] topiramate 100 mg tablet 100 mg PO DAILY tab 01/31/21 [History Last Taken 04/20 05/10] amitriptyline 50 mg PO QHS 05/11/21 [History Last Taken 05/10/21] clonidine HCl 0.1 mg PO QHS 05/11/21 [History Last Taken 05/10/21] lamotrigine 200 mg PO BID 05/11/21 [History Last Taken 05/11/21] Allergy/AdvReac Type Severity Reaction Status Date / Time acetaminophen [From Tylenol] Allergy Itching Verified 05/11/21 16:52 Family History Father Heart disease Surgical History History of skin graft Social History household members: none Smoking Status: Current every day smoker tobacco type: cigarettes alcohol intake: current substance use type: does not use caffeine: Yes what type of physical activity do you participate in: none seatbelt use: always do you feel safe at home: Yes additional social history: Mukesh- both are unemployed ROS Constitutional Constitutional: Denies anorexia, chills, fatigue, fever(s), malaise or weakness Cardiovascular Cardiovascular: Denies chest pain, edema, palpitations or syncope Respiratory/Chest Respiratory/Chest: Denies cough, shortness of breath at rest, shortness of breath with exertion or wheezing Gastrointestinal Gastrointestinal: Denies abdominal pain, constipation, diarrhea, nausea or vomiting Genitourinary Genitourinary: Denies dysuria Musculoskeletal Musculoskeletal: Denies back pain, extremity pain, joint pain, joint stiffness or joint swelling Integumentary Integumentary: Denies dry skin Neurologic Neurologic: Denies abnormal gait, abnormal speech, confusion, dizziness or focal weakness Psychiatric Psychiatric: Denies anxiety Endocrine Endocrinology: Denies change in body appearance Hematologic/Lymphatic Hematologic/Lymphatic: Denies anemia Vital Signs Vital Signs Vital Signs: 05/11/21 16:49 Temperature 98.3 F Temperature Source Temporal Pulse Rate 133 H Respiratory Rate 18 Blood Pressure 120/80 Blood Pressure Mean 93 Pulse Ox 99 Oxygen Delivery Method Room Air Weight Weight: 207 lb 3.752 oz Body Mass Index (BMI) 32.4 Physical Exam Const alert, oriented x3 and no apparent distress General Appearance: cooperative HEENT normocephalic and head/scalp atraumatic Eyes conjunctivae normal and no scleral icterus Neck no lymphadenopathy and supple General: trachea midline Resp normal respiratory effort, normal air movement and clear to auscultation bilaterally Cardio regular rate, regular rhythm, S1 normal heart sound, S2 normal heart sound and peripheral pulses 2+ throughout GI normal to inspection, nondistended, normoactive bowel sounds, soft to palpation and non-tender Extremity normal capillary refill and no clubbing, cyanosis or edema General Extremity: no tenderness to palpation of joints or extremities Skin General Skin Exam: no breakdown and turgor normal Lesions: no lesions Rashes: no rashes Neuro no focal motor deficits and no sensory deficits noted Speech: speech normal Motor Exam: Negative for general weakness Psych thought process normal and cooperative Activity / Motor Behavior: restless Mood & Affect: flat affect Results Lab / Micro Data Result Diagrams: 05/11/21 17:10 05/11/21 17:10 Assessment & Plan Assessment/Plan (1) Bipolar affective disorder: QUALIFIERS: Active/Remission status: remission status unspecified Qualified Code(s): F31.9 - Bipolar disorder, unspecified (2) Alcohol dependence: (3) Methamphetamine use: PLAN: 1. Alcohol dependence with desire for detoxification -Admit to [facility] -Phenobarbital taper ordered -CIWA per protocol -Supportive medications ordered per protocol -Regular diet ordered -Urine drug screen pending -Case management consulted for coordination with 180 upon discharge 2. Bipolar affective disorder -We will continue patient's home medications including Abilify, Vraylar, Lexapro, Lamictal, Topamax 3. Methamphetamine use -Patient had been sober times almost 1 year however patient states that she did relapse on Sunday 4. Tobacco abuse -Inpatient cessation education ordered -Nicotine patch ordered DVT prophylaxis-not indicated, encourage ambulation This patient was seen by APARNA Hunter under the supervision of Dr. Linton 25 minutes spent in clinical coordination of patient's plan of care. Documented by User: Dr. Farhan Linton DO 05/11/21 19:24 HPI - General General Date of Admission: 05/11/21 [facility] Medical History (Updated 05/11/21 @ 17:31 by Lupe Alamo NP-C) Bipolar affective disorder Home Medications aripiprazole 5 mg tablet 5 mg PO DAILY tab 01/31/21 [History Last Taken 05/11/21] cariprazine 4.5 mg capsule 4.5 mg PO DAILY cap 01/31/21 [History Last Taken 05/11/21] escitalopram oxalate 5 mg tablet 25 mg PO DAILY tab 01/31/21 [History Last Taken 05/11/21] topiramate 100 mg tablet 100 mg PO DAILY tab 01/31/21 [History Last Taken 05/11/21] amitriptyline 50 mg PO QHS 05/11/21 [History Last Taken 05/10/21] clonidine HCl 0.1 mg PO QHS 05/11/21 [History Last Taken 05/10/21] lamotrigine 200 mg PO BID 05/11/21 [History Last Taken 05/11/21] Allergy/AdvReac Type Severity Reaction Status Date / Time acetaminophen [From Tylenol] Allergy Itching Verified 05/11/21 16:52 Family History Father Heart disease Surgical History History of skin graft Social History household members: none Smoking Status: Current every day smoker tobacco type: cigarettes alcohol intake: current substance use type: does not use caffeine: Yes what type of physical activity do you participate in: none seatbelt use: always do you feel safe at home: Yes additional social history: Mukesh- both are unemployed Results Lab / Micro Data Result Diagrams: 05/11/21 17:10 05/11/21 17:10 Charges/Coding Addendum Addendum: Patient was seen and examined today independently of Haleigh Alamo, she came to the ER today at [facility] requesting services for detox from alcohol, she told the emergency room physician that she drinks 1/5 of whiskey a day, she also told him that the last time she drank was approximately 1:00 this afternoon. Patient denied ever going through detox for alcohol before and states she is only drank for a year. Patient did admit to having a problem with methamphetamines in the past and going to a rehab facility for methamphetamines. The emergency room physician today that saw the patient told me that someone called him earlier today and requested information for methamphetamine detox services at the hospital and was told by him that we do not detox from methamphetamines. On examination she appeared in good health and spirits, she does not appear to be in any distress. Vital signs as documented. Skin warm and dry and without overt rashes. Neck without JVD, thyroid appears normal, trachea is midline, neck is supple. Lungs clear, normal air movement was noted. Heart exam notable for regular rhythm, normal sounds and absence of murmurs, rubs or gallops. Abdomen unremarkable and without evidence of organomegaly, masses, or abdominal aortic enlargement, bowel sounds are present in all 4 quadrants, no abdominal tenderness was noted. Extremities nonedematous, no cyanosis was noted, no clubbing was noted. Neuro: Cranial nerves II through XII are grossly intact, no focal motor deficits were noted, sensation to light touch and pinprick is intact, motor exam 5/5 throughout. Psych: Patient is alert and oriented x3, she does not appear anxious or depressed, she does not appear agitated. Patient does not appear nervous, anxious, or tremorous. Patient appears very animated and is not sad or depressed. She told this examiner that the last time she drank was this morning and that she drinks gin and beer. Patient's tox screen was positive for amphetamines, MDMA, and cannabinoids. Her ethyl alcohol level was 4. I strongly suspect the patient does not have an alcohol problem, I talked to nursing on MedSurg 3 and told them not to treat her unless they were sure that she was undergoing alcohol withdrawal. I have placed orders in for alcohol detox, she will be seeing addiction family welfare social work professor tomorrow. Impression: #1 requesting services for alcohol detox-without visible evidence of alcohol withdrawal at this time, again I strongly suspect the patient does not have an alcohol problem based on the way she presents to this examiner. I also think she had called in earlier today in the ER and had that conversation with the emergency room physician concerning methamphetamine detox services. #2 methamphetamine abuse-there is no treatment I can offer this patient for methamphetamine abuse, addiction family welfare social work professor will talk with the patient tomorrow. #3 bipolar disorder-patient does not remember what medications she takes for bipolar disorder, right [facility] was contacted and will provide a list of her outpatient medications. I have reviewed Haleigh Alamo's history and physical including her medical assessment and plan of care and with the above additions endorse it. Total [facility] time spent by myself addressing the patient's issues, reviewing the patient's medical record, and collaborating with the patient's care team: 45 minutes Visit Charges Inpatient E&M: [id number] Init Hosp L3
[2021-05-11 17:23] LABS: Absolute Lymphocyte Count 3.79 X10^3/uL (0.83-4.51); Absolute Neutrophil Count 4.5 X10^3/uL (2.0-7.7); Basophil# 0.03 X10^3/uL; Basophil% 0.3 % (0-1); Eosinophil# 0.09 X10^3/uL; Hematocrit 48.2 % (37-47); Hemoglobin 16.4 g/dL (12.0-15.0); Lymphocyte # 3.79 X10^3/ul (0.83-4.51); Lymphocyte % 42.2 % (19-41); Mean Corpuscular Hgb 30.3 pg (27.0-32.0); Mean Corpuscular Volume 88.9 fL (81-99); Mean Platelet Vol. 10.1 fl (6.2-12.0); Monocyte# 0.51 X10^3/uL; Monocyte% 5.7 % (0-10); NRBC Flagged by Analyzer 0 % (0-5); Platelet Count 442 K/mm3 (150-450); RBC Distribution Width CV 11.9 % (11.6-14.6); RBC Distribution Width SD 38.6 fl (35.1-43.9); Red Blood Count 5.42 M/mm3 (4.2-5.4)
[2021-05-11] MEDS: Phenobarbital 32.4 MG Tablet PO (17:24)
[2021-05-11 17:26] VITALS: BP 120/80; PULSE 129; RESP 20; TEMP 36.6; O2SAT 99
[2021-05-11 17:33] LABS: Internal QC Validated? YES +Cl - CLEAR BKGD; Pregnancy, Serum, hCG Quali. NEGATIVE Negative
[2021-05-11 17:41] LABS: ALB/GLOB Ratio 0.9 RATIO (0.9-2.4); AST(SGOT) 19 U/L (15-37); Alanine Aminotransfer ALT/SGPT 35 U/L (13-56); Albumin, Serum 3.4 g/dL (3.2-5.0); Alkaline Phosphatase 116 U/L (45-117); Anion Gap 7 (5-15); BUN 9 mg/dL (7-18); BUN/Creat Ratio 9.2 RATIO (10-20); Calcium,Total 9.2 mg/dL (8.5-10.1); Chloride 107 mmol/L (98-107); Creatinine, Serum 0.97 mg/dL (0.55-1.02); EST Glomerular Filtration Rate 76 mL/min (>60); Est Glom Filt Rate - Afr Amer 92 mL/min (>60); Estimated Creatinine Clearance 89.22 ml/min; Globulin 3.9 g/dL (2.2-4.2); Glucose 114 mg/dL (74-106); Potassium 3.6 mmol/L (3.5-5.1); Protein, Total 7.3 g/dL (6.4-8.2); Sodium Level 140 mmol/L (136-145)
--- NOTE | 2021-05-11 17:57 | CM.ED ---
Social Work Consult: Substance Abuse Referral source: Self-Referral Met with patient in room. Introduced self and social media senior associate role. Patient agreeable to speak with this social media senior associate. Patient reports to be seeking medical management of withdrawal symptoms. Patient reports substance of choice as Meth, Alcohol, and prescription medications. Patient reports to have one child, Sherice who is now in the custody of patient parents and there is an open children services case through [facility]. Patient reports that part of treatment plan is getting sober for patient to be able to obtain custody of child again. Patient states main motivation for getting help is patient daughter. Patient verbally agreeing to [facility] contract. Support and active listening provided. Telephone call to [facility] treatment navigator, no answer. left with information about what room patient was admitting to. No other patient information provided. PLAN: [facility] admit. Ricardo MATA, MER
[2021-05-11 18:36] VITALS: BP 128/85; PULSE 113; RESP 16; TEMP 36.5; O2SAT 98
[2021-05-11 18:36] LABS: Amphetamine Urine VISTA POSITIVE (<1000 ng/mL); Barbiturate Urine VISTA NEGATIVE (< 200 ng/mL); Benzodiazepine Urine VISTA NEGATIVE (< 200 ng/mL); Cocaine Urine VISTA NEGATIVE (< 300 ng/mL); Ecstacy Urine VISTA POSITIVE (< 500 ng/mL); Methadone Urine VISTA NEGATIVE (< 300 ng/mL); PCP Urine VISTA NEGATIVE (< 25 ng/mL); THC Urine VISTA POSITIVE (< 50 ng/mL); Vista UDS pH Range 5
[2021-05-11 18:37] VITALS: BMI 30.7
[2021-05-11 20:42] VITALS: BP 114/69; PULSE 102; RESP 18; TEMP 36.7; O2SAT 98
--- NOTE | 2021-05-11 20:48 | NURSING ---
Attempt to call pts mother, with pts permission, regarding vraylar medication to see if mother can bring in home med. call placed, left a message with callback number, no pt information given over the phone
[2021-05-11] MEDS: Amitriptyline 25 MG Tablet 50 MG PO (21:12)
[2021-05-11] MEDS: lamoTRIgine 100 MG Tablet 200 MG PO (21:12)
[2021-05-11] MEDS: Dicyclomine 10 MG Capsule 20 MG PO (21:12)
[2021-05-11] MEDS: cloNIDine HCl 0.1 MG Tablet PO (21:13)
[2021-05-11] MEDS: hydrOXYzine PAM 25 MG Capsule 50 MG PO (23:47)
[2021-05-11] MEDS: traZODone 100 MG Tablet PO (23:47)
[2021-05-12 04:20] VITALS: BP 124/67; PULSE 67; RESP 18; TEMP 36.6; O2SAT 99
--- NOTE | 2021-05-12 07:19 | NURSING ---
second attempt to call pts mother regarding vraylar medication. no answer. Mark MTZ, Maria Luisa updated.
[2021-05-12 10:37] VITALS: BP 94/58; PULSE 85; RESP 14; TEMP 36.8; O2SAT 99
[2021-05-12] MEDS: Folic Acid 1 MG Tablet PO (10:40)
[2021-05-12] MEDS: Escitalopram Oxalate 10 MG Tablet 25 MG PO (10:40)
[2021-05-12] MEDS: ARIPiprazole 5 MG Tablet PO (10:40)
[2021-05-12] MEDS: lamoTRIgine 100 MG Tablet 200 MG PO (10:40)
[2021-05-12] MEDS: Thiamine Hydrochloride 100 MG Tablet PO (10:40)
[2021-05-12] MEDS: Topiramate 100 MG Tablet PO (10:41)
[2021-05-12 15:09] VITALS: BP 98/65; PULSE 98; RESP 16; TEMP 37.3; O2SAT 98
--- NOTE | 2021-05-12 15:28 | PCM.DC ---
Discharge Instructions Diet Discharge Diet: No restrictions Activity Discharge Activity: Return to Normal Activity Weight Bearing Status: Full weight bearing Follow Up Care Test Results: Test results from this visit will be discussed in further detail at your follow-up appointment, if applicable. Discharge Plan Admission Admit Date/Time: 05/11/21 17:15 Primary Reason for Your Visit: Methamphetamine abuse Attending Provider: Farhan Linton Primary Care Provider: Care Physician,No Primary Discharge Orders/Prescriptions Prescriptions: Continued escitalopram oxalate 5 mg tablet 25 mg PO DAILY RF: 0 aripiprazole 5 mg tablet 5 mg PO DAILY RF: 0 topiramate 100 mg tablet 100 mg PO DAILY RF: 0 cariprazine 4.5 mg capsule 4.5 mg PO DAILY RF: 0 lamotrigine 200 mg tablet 200 mg PO BID RF: 0 clonidine HCl 0.1 mg tablet 0.1 mg PO QHS RF: 0 amitriptyline 50 mg tablet 50 mg PO QHS RF: 0 Referrals / Follow Up: Care Physician,No Primary [Primary Care Provider] - Disposition Disposition (needs filled in before D/C Order can be placed): Inpatient Rehab Unit/Facility
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
--- NOTE | 2021-05-12 16:46 | NURSING ---
Called patient's mother and let her know she will be going to [facility].
--- NOTE | 2021-05-14 19:14 | DS.PCM_ITS ---
Providers Date of Admission: 05/11/21 Date of Discharge: 05/12/21 Primary Care Physician: No Primary Care Phys Reason For Visit: ALCOHOL DETOX Diagnosis Discharge Diagnosis (1) Bipolar affective disorder: Status: Acute Code(s): F31.9 - Bipolar disorder, unspecified Qualifiers: Active/Remission status: remission status unspecified Qualified Code(s): F31.9 - Bipolar disorder, unspecified (2) Alcohol dependence: Status: Acute Code(s): F10.20 - Alcohol dependence, uncomplicated (3) Methamphetamine use: Status: Acute Code(s): F15.10 - Other stimulant abuse, uncomplicated Plan: 1. Methamphetamine abuse #2 pathological lying #3 bipolar disorder Alcoholism was ruled out Medications at Discharge Home Medications aripiprazole 5 mg tablet 5 mg PO DAILY tab 01/31/21 cariprazine 4.5 mg capsule 4.5 mg PO DAILY cap 01/31/21 escitalopram oxalate 5 mg tablet 25 mg PO DAILY tab 01/31/21 topiramate 100 mg tablet 100 mg PO DAILY tab 01/31/21 amitriptyline 50 mg PO QHS 05/11/21 clonidine HCl 0.1 mg PO QHS 05/11/21 lamotrigine 200 mg PO BID 05/11/21 Hospital Course Operations None Procedures None Summary of Care Provided Minutes Spent on Discharge: 31 Hospital Course: This 21-year-old white female was seen in the emergency room at [facility] requesting services for alcohol detox, according to the patient, she drinks 1/5 of whiskey a day, she admitted to past history of methamphetamine usage. Patient was admitted to [place] [id number], her tox screen [facility] showed that she had not been drinking and it was positive for methamphetamines. Patient was not given phenobarbital, she was seen in consultation by addiction psychiatric social worker who arranged for the patient to be transferred to an inpatient rehab facility due to her methamphetamine usage. On 05/14/2021, patient was seen and examined: On examination she appeared in good health and spirits, she does not appear to be in any distress. Vital signs as documented. Skin warm and dry and without overt rashes. Neck without JVD, thyroid appears normal, trachea is midline, neck is supple. Lungs clear, normal air movement was noted. Heart exam notable for regular rhythm, normal sounds and absence of murmurs, rubs or gallops. Abdomen unremarkable and without evidence of organomegaly, masses, or abdominal aortic enlargement, bowel sounds are present in all 4 quadrants, no abdominal tenderness was noted. Extremities nonedematous, no cyanosis was noted, no clubbing was noted. Neuro: Cranial nerves II through XII are grossly intact, no focal motor deficits were noted, sensation to light touch and pinprick is intact, motor exam 5/5 throughout. Psych: Patient is alert and oriented x3, she does not appear anxious or depressed, she does not appear agitated. Patient was discharged to an inpatient rehab facility on 05/14/2021 in stable condition. Weight / BMI Weight Weight: 88.813 kg Body Mass Index (BMI) 30.7 ABG / Lab / Microbiology Data Result Diagrams: 05/11/21 17:10 05/11/21 17:10 D/C Instructions Discharge Diet: No restrictions Weight Bearing Status: Full weight bearing Meaningful Use Info Meaningful Use Diagnoses (Choose all that apply): None applicable Discharge Plan Admission Admit Date/Time: 05/11/21 17:15 Primary Reason for Your Visit: Methamphetamine abuse Attending Provider: Farhan Linton Primary Care Provider: Care Physician,Haydee Primary Discharge Orders/Prescriptions Prescriptions: Continued escitalopram oxalate 5 mg tablet 25 mg PO DAILY RF: 0 aripiprazole 5 mg tablet 5 mg PO DAILY RF: 0 topiramate 100 mg tablet 100 mg PO DAILY RF: 0 cariprazine 4.5 mg capsule 4.5 mg PO DAILY RF: 0 lamotrigine 200 mg tablet 200 mg PO BID RF: 0 clonidine HCl 0.1 mg tablet 0.1 mg PO QHS RF: 0 amitriptyline 50 mg tablet 50 mg PO QHS RF: 0 Referrals / Follow Up: Care Physician,No Primary [Primary Care Provider] - Disposition Disposition (needs filled in before D/C Order can be placed): Inpatient Rehab Unit/Facility Charges/Coding Visit Charges Inpatient E&M: 97221 Disch Hosp
== END 2021-05-12 17:12 | DRG 776 ==
LOC: ED 17:25 → MS3 17:33
PROVIDERS: Admitting Provider Internal Medicine; Emergency Provider Emergency Medicine; Visit Provider Internal Medicine
DX: F15.10 Other stimulant abuse, uncomplicated (principal); F31.9 Bipolar disorder, unspecified; F17.210 Nicotine dependence, cigarettes, uncomplicated; F60.2 Antisocial personality disorder; Z79.899 Other long term (current) drug therapy
CPT/HCPCS: 80053; 80307; 82077; 84703; 85025; 99282; 99406

== ENCOUNTER → 2024-08-21 | Outpatient (CLI) | payer MEDICAID, SELFPAY ==
[2024-08-21 13:10] LABS: Hematocrit 34.7 % (37-47); Hemoglobin 11.0 g/dL (12.0-15.0); Immature Granulocytes Count 0.220 X10^3/uL (0.0-0.0); Mean Corp Hgb Conc 31.7 g/dL (32-36); Mean Corpuscular Volume 84.6 fL (81-99); Mean Platelet Vol. 9.7 fl (6.2-12.0); NRBC Flagged by Analyzer 0 % (0-5); Platelet Count 394 K/mm3 (150-450); RBC Distribution Width CV 12.8 % (11.6-14.6); RBC Distribution Width SD 39.2 fl (35.1-43.9); Red Blood Count 4.10 M/mm3 (4.2-5.4); White Blood Count 8.9 K/mm3 (4.4-11.0)
[2024-08-21 14:02] LABS: AST(SGOT) 15 U/L (<=31); Alanine Aminotransfer ALT/SGPT 12 U/L (<=34); Albumin, Serum 3.1 g/dL (3.5-5.0); Alkaline Phosphatase 100 U/L (35-104); Anion Gap 8 (5-15); BUN 12 mg/dL (4-19); BUN/Creat Ratio 19.8 RATIO (10-20); Calcium,Total 8.5 mg/dL (7.6-11.0); Carbon Dioxide 27.6 mmol/L (21.0-32.0); Chloride 106 mmol/L (98-108); Globulin 2.4 g/dL (2.2-4.2); Glucose 85 mg/dL (70-99); Potassium 4.4 mmol/L (3.3-5.1)
== END | disposition home or self-care (01) ==
LOC: LAB 11:41
PROVIDERS: Referring Provider Family Medicine; Visit Provider Family Medicine
DX: F11.20 Opioid dependence, uncomplicated (principal)
CPT/HCPCS: 36415; 80053; 85025

== ENCOUNTER → 2024-09-03 | Outpatient (CLI) | payer MEDICAID, SELFPAY ==
[2024-09-03 14:25] LABS: Cholesterol 142 mg/dL (<=200); Free T3 3.6 pg/mL (2.18-3.98); Low Density Lipoprotein Calc. 64 mg/dL; Triglycerides 161 mg/dL; Very Low Density Lipoprotein 32 mg/dL (5-40); cholesterol:hdl ratio screen 3.07
== END | disposition home or self-care (01) ==
PROVIDERS: Referring Provider Psychiatry & Neurology Psychiatry; Visit Provider Psychiatry & Neurology Psychiatry
DX: E03.9 Hypothyroidism, unspecified (principal); Z79.899 Other long term (current) drug therapy
CPT/HCPCS: 36415; 80061; 84439; 84443; 84481

== ENCOUNTER → 2024-10-01 | Outpatient (CLI) | payer MEDICAID, SELFPAY ==
[2024-10-01 11:07] LABS: Lithium 0.33 mmol/L (0.60-1.20)
== END | disposition home or self-care (01) ==
LOC: LAB 08:55
PROVIDERS: Referring Provider Psychiatry & Neurology Psychiatry; Visit Provider Psychiatry & Neurology Psychiatry
DX: Z51.81 Encounter for therapeutic drug level monitoring (principal); Z79.899 Other long term (current) drug therapy
CPT/HCPCS: 36415; 80178